=== PATIENT | female | born 1970 | race Caucasian/White ===

== ENCOUNTER 2020-03-28 08:33 | Inpatient (IN) | payer OTHER ==
[~2020-03-28] VITALS: Ht 175.3 cm; Wt 53.6 kg
[2020-03-28] MEDS ORDERED: acetaminophen 325mg tablet PO STA (08:41)
[2020-03-28] MEDS ORDERED: dexamethasone sod phosphate 10mg/ml inj IV STA (08:41)
[2020-03-28] MEDS ORDERED: normal saline 1000ML IV soln IV ONE (08:45)
[2020-03-28] MEDS ORDERED: albuterol 2.5 MG/3 ML nebule CONTNEB PRN (08:45)
[2020-03-28] MEDS ORDERED: azithromycin/NS 500mg/250ml 250 ML IV ONE (08:45)
[2020-03-28] MEDS ORDERED: CefTRIAXone 2gm/D5W 50ml BAG 50 ML IV ONE (08:45)
[2020-03-28] MEDS: levoFLOXACIN-Levaquin 750MG/D5 150 ML IV ONE ×2 (09:21→09:57)
[2020-03-28] MEDS ORDERED: diphenhydrAMINE 50 mg/ml inj IV ONE (09:45)
[2020-03-28 09:47] LABS: BASOPHILS % (AUTO) 0.4 % (0-1); EOSINOPHILS % (AUTO) 0.1 % (0-6); HEMATOCRIT 47.3 % (35.0-45.0); HEMOGLOBIN 15.8 g/dl (12.0-16.0); LYMPHOCYTES # (AUTO) 0.4 X10'3 (1.1-4.8); LYMPHOCYTES % (AUTO) 4.4 % (21-51); MEAN CORPUSCULAR HEMOGLOBIN 32.3 PG (27.0-31.0); MEAN CORPUSCULAR HGB CONC 33.5 g/dL (33.0-36.5); MEAN CORPUSCULAR VOLUME 96.4 FL (78-98); MEAN PLATELET VOLUME 8.8 FL (7.4-10.4); MONOCYTES # (AUTO) 0.7 X10'3 (0-0.9); MONOCYTES % (AUTO) 6.6 % (2-12); NEUTROPHILS # (AUTO) 9.1 X10'3 (1.8-7.7); NEUTROPHILS % (AUTO) 88.5 % (42-75); PLATELET COUNT 205 X10'3 (140-440); RED CELL DISTRIBUTION WIDTH 13.4 % (11.5-14.5); WHITE BLOOD COUNT 10.3 X10'3 (4.5-11.0)
--- NOTE | 2020-03-28 09:47 | NUR ---
roger ortiz informed that pt started itching as she recived the levofloxcin iv abx ,as per provider he will order benedryl and slow the rate of levofloxacin .pt spo2 92 on 5 l notified provider increased o2 to 8 l spo2 95 %.
[2020-03-28 10:00] LABS: CLARITY,URINE SLIGHTLY CLOUDY (Clear); COLOR,URINE YELLOW (Yellow); GLUCOSE, URINE 100 mg/dl (Neg); KETONES,URINE TRACE mg/dl (Neg); LEUKOCYTE ESTERASE ,URINE TRACE (Neg); NITRITES, URINE POSITIVE (Neg); OCCULT BLOOD,URINE SMALL (Neg); PH,URINE 5.5 (4.8-8.0); PROTEIN,URINE NEGATIVE (Neg); UROBILINOGEN,URINE 0.2 E.U/dL (0.2-1.0)
[2020-03-28 10:02] LABS: UA COLLECTION TYPE VOIDED
[2020-03-28 10:04] LABS: ALANINE AMINOTRANSFERASE 16 U/L (12-78); ALBUMIN 3.9 G/DL (3.4-5.0); ALBUMIN/GLOBULIN RATIO 1.2 (1.1-1.5); ALKALINE PHOSPHATASE 93 IU/L (46-116); ANION GAP 11 (8-16); ASPARTATE AMINO TRANSFERASE 12 U/L (10-37); BILIRUBIN,TOTAL 0.5 MG/DL (0.1-1.0); BLOOD UREA NITROGEN 8 MG/DL (7-18); BUN/CREATININE RATIO 11.4 (6.6-38.0); CALCIUM 8.7 MG/DL (8.5-10.1); CHLORIDE 110 MMOL/L (99-107); GLUCOSE 129 MG/DL (70-104); POTASSIUM 3.9 MMOL/L (3.5-5.1); SODIUM 144 MMOL/L (135-145); TOTAL CARBON DIOXIDE 22.6 MMOL/L (24-32); TOTAL PROTEIN 7.1 G/DL (6.4-8.2); eGFR 88 ML/MIN
[2020-03-28 10:06] LABS: MUCUS STRANDS FEW /LPF (Neg); SQUAMOUS EPITHELIAL CELL,UR FEW /LPF (FEW)
[2020-03-28 10:07] LABS: BACTERIA,URINE 3+ /HPF (Neg); RBC,URINE 0-2 /HPF (0-2)
[2020-03-28 10:14] LABS: ABG BASE EXCESS -2.9 mmol/L (-2.0-2.0); ABG HCO3 23.1 mmol/L (22.0-26.0); ABG PCO2 (T) 44.4 mmHg (32.0-45.0); ABG PO2 (T) 74.1 mmHg (75.0-100.0); ALLEN'S TEST POSITIVE; FLOW 10 L/min; FMetHb 0.4 % (0.0-1.5); FO2Hb 92.7 % (94-97); TOTAL HEMOGLOBIN 15.9 G/dl (12.0-16.0)
[2020-03-28 10:14] LABS: C-REACTIVE PROTEIN 1.19 MG/DL (0.0-0.5); FERRITIN 112 NG/ML (8-252); LACTATE DEHYDROGENASE 172 U/L (81-234)
[2020-03-28 10:37] LABS: D-DIMER 0.26 MG/L FEU (0-0.50)
[2020-03-28] MEDS ORDERED: LORazepam 2 mg/ml vial IV ONE (10:45)
[2020-03-28] MEDS ORDERED: ipratropium/albuterol 3ml nebule NEB ONE (11:35)
[2020-03-28] MEDS ORDERED: magnesium 4gm in 100ml NS 100 ML IV PRN (12:55)
[2020-03-28] MEDS ORDERED: aminophylline 250mg/10ml inj. IV PRN (12:55)
[2020-03-28] MEDS ORDERED: acetaminophen 325mg tablet PO PRN ×2 (12:55)
[2020-03-28] MEDS ORDERED: nitroGLYCERIN 0.4mg SUBLingual tab SL PRN (12:55)
[2020-03-28] MEDS ORDERED: HYDROcodone/acetaminophen 5mg/325mg tablet PO PRN (12:55)
[2020-03-28] MEDS ORDERED: magnesium hydroxide 30ml (MOM) UD suspension PO PRN (12:55)
[2020-03-28] MEDS ORDERED: potassium Cl 20 mEq SR tablet PO PRN ×2 (12:55)
[2020-03-28] MEDS ORDERED: ondansetron/PF 4mg/2ml inj IV PRN (12:55)
[2020-03-28] MEDS ORDERED: regadenoson 0.4mg/5ml syringe IV PRN (12:55)
[2020-03-28] MEDS ORDERED: magnesium 2GM in 50ml NS 50 ML IV PRN (12:55)
[2020-03-28] MEDS ORDERED: potassium Cl 40MEQ/1/2NS 520ml 520 ML IV PRN ×2 (12:55)
[2020-03-28] MEDS ORDERED: mag hydrox/Alum hydrox/simeth 30ml oral suspension PO PRN (12:55)
[2020-03-28] MEDS ORDERED: magnesium Cl slow-release 64mg tablet PO PRN (12:55)
[2020-03-28] MEDS ORDERED: morphine 2 MG/ML inj. syringe IV PRN (12:55)
[2020-03-28] MEDS ORDERED: metoprolol tartrate 1mg/ml inj IV PRN (12:55)
--- NOTE | 2020-03-28 13:53 | NUR ---
RT AT BEDSIDE DOING ABG
[2020-03-28 14:11] LABS: ABG BASE EXCESS -7.6 mmol/L (-2.0-2.0); ABG HCO3 17.8 mmol/L (22.0-26.0); ABG OXYGEN SATURATION 98.3 % (94-97); ABG PCO2 (T) 36.1 mmHg (32.0-45.0); ABG PO2 (T) 116.4 mmHg (75.0-100.0); ALLEN'S TEST POSITIVE; FCOHb 0.7 % (0.0-3.9); FLOW 5 L/min; FMetHb 0.3 % (0.0-1.5); FO2Hb 97.3 % (94-97); TOTAL HEMOGLOBIN 14.7 G/dl (12.0-16.0)
[2020-03-28] MEDS ORDERED: NO HOME MEDS (15:16)
[2020-03-28] MEDS: albuterol 2.5 MG/3 ML nebule NEB SCH ×3 (16:03→23:44)
[2020-03-28] MEDS: normal saline 1000ml 1,000 ML IV SCH (17:26)
[2020-03-28] MEDS ORDERED: LORazepam 2 mg/ml vial IV PRN (18:00)
[2020-03-28] MEDS ORDERED: LORazepam 0.5 MG tablet PO PRN (18:00)
[2020-03-28 20:00] VITALS: BP 140/63
[2020-03-28] MEDS: K and/or MAG REPLACEMENT MC SCH (20:00)
[2020-03-28] MEDS: methylPREDNISolone sod succ 125mg/2ml vial IV SCH (20:15)
[2020-03-28] MEDS: heparin, porcine 5000 units/ml vial SQ SCH (20:16)
[2020-03-28] MEDS ORDERED: temazepam 15mg capsule PO PRN (21:00)
[2020-03-28 22:00] VITALS: BP 106/58
--- NOTE | 2020-03-28 22:31 | NUR ---
Patient in room PCU 3018. I have received report from MEREDITH Garrido and had the opportunity to ask questions and assume patient care.
[2020-03-29] VITALS (14 sets, daily range): BP systolic 105–139; BP diastolic 22–71
[2020-03-29] MEDS: albuterol 2.5 MG/3 ML nebule NEB SCH ×4 (03:27→15:57)
--- NOTE | 2020-03-29 06:19 | NUR ---
Problems reprioritized. Patient report given, questions answered & plan of care reviewed with MEREDITH Arthur.
--- NOTE | 2020-03-29 06:44 | NUR ---
Pagesven Roa regarding ordering a troponin PAGER ID: [phone] MESSAGE: Re Yadi Nino [id number] Per commercial instructor supervisor, before pt has Jossy scan, they need a troponin drawn. Can I order one trop or a series? Please advise Thanks Sandhya [phone]
--- NOTE | 2020-03-29 07:11 | NUR ---
Paged Dr Snider regarding ordering troponin PAGER ID: [phone] MESSAGE: Re Yadi Nino [id number] Per frame sample and pattern supervisor, before pt has Jossy scan, they need a troponin drawn. Can I order one trop or a series? Please advise Thanks Sandhya
[2020-03-29 07:22] LABS: BASOPHILS % (AUTO) 0.1 % (0-1); EOSINOPHILS % (AUTO) 0 % (0-6); HEMATOCRIT 40.5 % (35.0-45.0); HEMOGLOBIN 13.5 g/dl (12.0-16.0); LYMPHOCYTES # (AUTO) 0.7 X10'3 (1.1-4.8); LYMPHOCYTES % (AUTO) 8.6 % (21-51); MEAN CORPUSCULAR HEMOGLOBIN 32.3 PG (27.0-31.0); MEAN CORPUSCULAR HGB CONC 33.4 g/dL (33.0-36.5); MEAN CORPUSCULAR VOLUME 96.7 FL (78-98); MEAN PLATELET VOLUME 9.5 FL (7.4-10.4); MONOCYTES # (AUTO) 0.9 X10'3 (0-0.9); MONOCYTES % (AUTO) 11.3 % (2-12); NEUTROPHILS # (AUTO) 6.6 X10'3 (1.8-7.7); PLATELET COUNT 178 X10'3 (140-440); RED BLOOD COUNT 4.18 X10'6 (4.20-5.60); RED CELL DISTRIBUTION WIDTH 13.7 % (11.5-14.5); WHITE BLOOD COUNT 8.3 X10'3 (4.5-11.0)
[2020-03-29 07:42] LABS: ALANINE AMINOTRANSFERASE 17 U/L (12-78); ALBUMIN 3.3 G/DL (3.4-5.0); ALBUMIN/GLOBULIN RATIO 1.2 (1.1-1.5); ALKALINE PHOSPHATASE 70 IU/L (46-116); ANION GAP 8 (8-16); ASPARTATE AMINO TRANSFERASE 16 U/L (10-37); BILIRUBIN,TOTAL 0.3 MG/DL (0.1-1.0); BLOOD UREA NITROGEN 9 MG/DL (7-18); BUN/CREATININE RATIO 12.2 (6.6-38.0); CALCIUM 8.9 MG/DL (8.5-10.1); CHLORIDE 111 MMOL/L (99-107); CREATININE 0.74 MG/DL (0.40-0.90); GLUCOSE 119 MG/DL (70-104); MAGNESIUM 2.1 MG/DL (1.5-2.4); POTASSIUM 3.6 MMOL/L (3.5-5.1); SODIUM 146 MMOL/L (135-145); TOTAL CARBON DIOXIDE 26.7 MMOL/L (24-32); TOTAL PROTEIN 6.1 G/DL (6.4-8.2); eGFR 83 ML/MIN
[2020-03-29] MEDS ORDERED: levoFLOXACIN-Levaquin 750MG/D5 150 ML IV SCH (08:00)
[2020-03-29] MEDS ORDERED: CefTRIAXone 2gm/D5W 50ml BAG 50 ML IV SCH (08:00)
[2020-03-29] MEDS ORDERED: nicotine 14mg patch - 24hr TD SCH (08:00)
[2020-03-29] MEDS: K and/or MAG REPLACEMENT MC SCH (08:00)
[2020-03-29] MEDS: heparin, porcine 5000 units/ml vial SQ SCH (08:00)
[2020-03-29] MEDS: methylPREDNISolone sod succ 125mg/2ml vial IV SCH (09:10)
[2020-03-29] MEDS: normal saline 1000ml 1,000 ML IV SCH (09:17)
[2020-03-29 10:46] LABS: TROPONIN I < 0.04 NG/ML (0.0-0.05)
[2020-03-29] MEDS ORDERED: regadenoson 0.4mg/5ml syringe IV PRN (14:05)
--- NOTE | 2020-03-29 14:22 | NUR ---
Low BMI of 17.5, Well developed, well nourished per ED physician note and reported no loss of appetite and no weight change. will follow up on date above for initial nutrition assessment. Addendum: 03/29/20 at [address] Amended: Links added.
--- NOTE | 2020-03-29 15:58 | NUR ---
Paged Dr Snider PAGER ID: [phone] MESSAGE: Britt NinoGabrielYadi [id number] Jossy results are complete. Please advise. Thank you Sandhya [phone]
[2020-03-29] MEDS ORDERED: LEVO500T89 PO (16:04)
[2020-03-29] MEDS ORDERED: NICO-631 TD (16:04)
[2020-03-29] MEDS ORDERED: PRED10TA23 PO (16:04)
[2020-03-29] MEDS ORDERED: ALBU8.5H8 IH (16:04)
[2020-03-29] MEDS ORDERED: ADV50250 IH (16:04)
--- NOTE | 2020-03-29 17:16 | NUR ---
Patient stable for discharge per MD orders. All instructions were given, all questions were answered appropriately. All belongings were collected and sent with pt. PIV discontinued, cannula intact. Tele discontinued, telegraph and teletype operator notified, tele box returned to telegraph and teletype operator. New RX called into [facility] in [place], [place]. Instructed pt to follow up with PCP and a orientor within 1-2 weeks. Wheeled to lobby and assisted into personal vehicle with .
[2020-03-29] MEDS ORDERED: lactobacillus rhamnosus 10,000 MMU CELLS/CAPSULE PO SCH (20:00)
== END 2020-03-29 17:20 | disposition home or self-care (01) | DRG 189 ==
LOC: ER 08:34 → ED HOLD 12:53 → PCU 3S 19:43
PROVIDERS: ADMIT Internal Medicine; ATTEND Internal Medicine
PROC: 4A02XM4 Measurement of Cardiac Total Activity, External Approach (ICD-10-PCS; principal; 2020-03-29)
PROC: 3E073KZ Introduction of Other Diagnostic Substance into Coronary Artery, Percutaneous Approach (ICD-10-PCS; 2020-03-29)
DX: J96.01 Acute respiratory failure with hypoxia (principal); J44.1 Chronic obstructive pulmonary disease with (acute) exacerbation; N39.0 Urinary tract infection, site not specified; F12.90 Cannabis use, unspecified, uncomplicated; F17.210 Nicotine dependence, cigarettes, uncomplicated; F41.9 Anxiety disorder, unspecified; K58.9 Irritable bowel syndrome, unspecified; Z20.822 Contact with and (suspected) exposure to COVID-19; G62.9 Polyneuropathy, unspecified; Z88.0 Allergy status to penicillin; Z88.2 Allergy status to sulfonamides; Z71.6 Tobacco abuse counseling
CPT/HCPCS: 36415; 36600; 71045; 71250; 78452; 80053; 81001; 82728; 82803; 83605; 83615; 83735; 84145; 84484; 85018; 85025; 85379; 85384; 86140; 87040; 87077; 87081; 87088; 87186; 87502; 87503; 87635; 93005; 93017; 93306; 93308; 94640; 94760; 96374; 97161; 97530; 99285; A7015; A9500; C9803; G0378; J0280; J1100; J1200; J1644; J1956; J2060; J2930; J7030